=== PATIENT | female | born 1950 | race Caucasian/White ===

== ENCOUNTER → 2018-09-16 | Outpatient (CLI) | payer OTHER ==
[~2018-09-16] VITALS: Ht 165.1 cm; Wt 88.0 kg
[~2018-09-16] MED LIST: ACCUNEB SO1.25 MG/1 INH; ASPIR 8181 M1 PO; LIORESAL 10 MG10 MG PO; MUCINEX600 MG PO; NORVASC5 MG PO; ROSUVASTATIN CA20 MG PO; SINGULAIR 10 MG10 M1 PO; SYNTHROID50 MCG PO
[2018-09-16 13:51] VITALS: BP 153/83
== END | disposition home or self-care (01) ==
LOC: CATH 09:44
DX: I87.303 Chronic venous hypertension (idiopathic) without complications of bilateral lower extremity (principal); I87.2 Venous insufficiency (chronic) (peripheral); I10 Essential (primary) hypertension; E78.5 Hyperlipidemia, unspecified; K21.9 Gastro-esophageal reflux disease without esophagitis; J44.9 Chronic obstructive pulmonary disease, unspecified; M81.0 Age-related osteoporosis without current pathological fracture; Z98.890 Other specified postprocedural states; Z79.899 Other long term (current) drug therapy; Z88.0 Allergy status to penicillin; Z88.8 Allergy status to other drugs, medicaments and biological substances; Z79.82 Long term (current) use of aspirin

== ENCOUNTER → 2018-10-29 | Outpatient (CLI) | payer OTHER ==
--- NOTE | 2018-10-29 13:02 | NUR ---
100 MG DOXYCYCLINE PO ADMINISTERED AT THIS TIME.
--- NOTE | 2018-10-29 13:24 | NUR ---
CONFIRMED VALIUM DOSE WITH DR. PABLO. 20 MG PO VALIUM GIVEN WITH SIP WATER. VSS. NO C/O. PT VOICES UNDERSTANDING OF VALIUM AND OF PROCEDURE PLANNED. PERMIT SIGNED PRIOR TO VALIUM DOSE. AT BEDSIDE. PLEASENT AFFECT.
--- NOTE | 2018-10-29 13:58 | NUR ---
SEE EMAR. VALIUM 10 MG GIVEN PO IN BEEF PLUCK TRIMMER. PT ALREADY RECEIVED 20 MG. SWALLOWS WITH SIP OF WATER WITHOUT DIFFICULTY
--- NOTE | 2018-10-29 16:34 | NUR ---
RECEIVED PT POST EVLA. PT AWAKE, ALERT X4. REQUESTS TO GET DRESSED AND VISIT BATHROOM. VOIDED. REPORTS LEG WEAK BUT STEADY. VSS. DISCHARGED HOME WITH AFTER BOTH VOICE UNDERSTANDING OF INSTRUCTIONS. FOLLOW UP APPT CARD GIVEN. STOCKING TO LEFT LEG INTACT. PLEASANT AFFECT.
== END | disposition home or self-care (01) ==
LOC: CATH 12:35
DX: I87.322 Chronic venous hypertension (idiopathic) with inflammation of left lower extremity (principal); I87.2 Venous insufficiency (chronic) (peripheral); Z88.0 Allergy status to penicillin; Z88.8 Allergy status to other drugs, medicaments and biological substances; Z79.82 Long term (current) use of aspirin; Z79.899 Other long term (current) drug therapy; Z98.890 Other specified postprocedural states

== ENCOUNTER → 2019-10-01 | Outpatient (CLI) | payer OTHER | LOC: SJCVC 13:44 | PROVIDERS: ATTEND Internal Medicine Cardiovascular Disease | DX: I25.10 Atherosclerotic heart disease of native coronary artery without angina pectoris (principal); R00.2 Palpitations; I10 Essential (primary) hypertension; E78.00 Pure hypercholesterolemia, unspecified; J44.9 Chronic obstructive pulmonary disease, unspecified; Z79.899 Other long term (current) drug therapy ==

== ENCOUNTER → 2020-08-03 | Outpatient (CLI) | payer OTHER ==
[~2020-08-03] MED LIST changes: +DILTIAZEM ER240 M2 PO; +LOW DOSE ASPIRI81 M1 PO; +ZETIA10 MG PO
== END ==
LOC: LAB 10:24
PROVIDERS: Student in an Organized Health Care Education/Training Program; ATTEND Internal Medicine Gastroenterology
DX: Z01.812 Encounter for preprocedural laboratory examination (principal); Z20.822 Contact with and (suspected) exposure to COVID-19

== ENCOUNTER → 2020-08-05 | Outpatient (CLI) | payer OTHER | LOC: GI | PROVIDERS: ATTEND Internal Medicine Gastroenterology | DX: R13.10 Dysphagia, unspecified (principal); K44.9 Diaphragmatic hernia without obstruction or gangrene ==

== ENCOUNTER → 2020-08-09 | Outpatient (CLI) | payer OTHER ==
[~2020-08-09] VITALS: Ht 165.1 cm; Wt 93.4 kg
== END | disposition home or self-care (01) ==
LOC: GI 08:33
PROVIDERS: ATTEND Internal Medicine Gastroenterology
DX: K62.5 Hemorrhage of anus and rectum (principal); K57.30 Diverticulosis of large intestine without perforation or abscess without bleeding; K64.8 Other hemorrhoids; R13.10 Dysphagia, unspecified; Q39.9 Congenital malformation of esophagus, unspecified; K21.9 Gastro-esophageal reflux disease without esophagitis; I10 Essential (primary) hypertension; E78.00 Pure hypercholesterolemia, unspecified; J44.9 Chronic obstructive pulmonary disease, unspecified; Z98.890 Other specified postprocedural states; Z79.899 Other long term (current) drug therapy; Z86.73 Personal history of transient ischemic attack (TIA), and cerebral infarction without residual deficits; Z96.643 Presence of artificial hip joint, bilateral; Z88.0 Allergy status to penicillin; Z88.8 Allergy status to other drugs, medicaments and biological substances
CPT/HCPCS: 62110; 62900

== ENCOUNTER → 2020-09-06 | Outpatient (CLI) | payer OTHER | LOC: SJCVC 14:02 | PROVIDERS: ATTEND Internal Medicine Cardiovascular Disease | DX: R94.31 Abnormal electrocardiogram [ECG] [EKG] (principal); I25.10 Atherosclerotic heart disease of native coronary artery without angina pectoris; R00.2 Palpitations; I10 Essential (primary) hypertension; E78.00 Pure hypercholesterolemia, unspecified; J44.9 Chronic obstructive pulmonary disease, unspecified; I87.2 Venous insufficiency (chronic) (peripheral); G47.33 Obstructive sleep apnea (adult) (pediatric); Z72.89 Other problems related to lifestyle; Z79.899 Other long term (current) drug therapy; Z88.1 Allergy status to other antibiotic agents; Z88.0 Allergy status to penicillin ==

== ENCOUNTER → 2020-10-15 | Outpatient (CLI) | payer OTHER | LOC: SJCVCIMAG 07:29 | PROVIDERS: ATTEND Internal Medicine Cardiovascular Disease | DX: I25.10 Atherosclerotic heart disease of native coronary artery without angina pectoris (principal); R06.00 Dyspnea, unspecified; Z01.810 Encounter for preprocedural cardiovascular examination; K21.9 Gastro-esophageal reflux disease without esophagitis; G47.33 Obstructive sleep apnea (adult) (pediatric); E78.5 Hyperlipidemia, unspecified; I10 Essential (primary) hypertension; J44.9 Chronic obstructive pulmonary disease, unspecified ==